=== PATIENT | male | born 1940 | race Caucasian/White ===

== ENCOUNTER 2024-08-05 21:02 | Inpatient (IN) | payer OTHER ==
[~2024-08-05] VITALS: Ht 162.6 cm; Wt 55.8 kg
[~2024-08-05 21:02] MED LIST: CYAN-10 IM; EPOE1VIA6 SUBCUT; ESOM20CA PO; FOLI0.8T23 PO; LOPE2CAP40 PO; PRED20TA PO; TAMS-3 PO; TEMA30CA PO; USTE90DI SQ; VITAMIN D PO
[2024-08-05] MEDS ORDERED: ACETAMINOPHEN 500 MG TABLET ONE (22:11)
[2024-08-05] MEDS: ACETAMINOPHEN 500 MG TABLET PO ONE (22:12)
[2024-08-05 22:21] LABS: BASOPHILS % (AUTO) 0.2 % (0.0-2.0); EOSINOPHILS # (AUTO) 0.1 K/uL (0.0-0.7); EOSINOPHILS % (AUTO) 4.3 % (0.0-7.0); HEMATOCRIT 29.6 % (36.7-47.1); HEMOGLOBIN 9.5 g/dL (12.5-16.3); LYMPHOCYTES # (AUTO) 0.1 K/uL (0.8-4.8); LYMPHOCYTES % (AUTO) 2.4 % (20.5-51.5); MEAN CORPUSCULAR HEMOGLOBIN 31.7 uug (23.8-33.4); MEAN CORPUSCULAR HGB CONC 32 g/dL (32.5-36.3); MEAN CORPUSCULAR VOLUME 99.1 fL (73.0-96.2); MONOCYTES # (AUTO) 0.2 K/uL (0.1-1.30); MONOCYTES % (AUTO) 7.5 % (0.0-11.0); NEUTROPHILS # (AUTO) 2.6 K/uL (1.8-8.9); NEUTROPHILS % (AUTO) 85.6 % (38.5-71.5); PLATELET COUNT (AUTO) 96 K/uL (152-348); RED BLOOD CELL COUNT(AUTO) 2.99 MIL/uL (4.06-5.63); RED CELL DISTRIBUTION WIDTH 16.6 % (12.1-16.2); WHITE BLOOD COUNT (AUTO) 3.1 K/uL (3.6-10.2)
[2024-08-05 22:25] LABS: DIFFERENTIAL COMMENT N
[2024-08-05] MEDS ORDERED: levoFLOXacin 750MG/D5W 150 ML IV ONE (22:43)
[2024-08-05] MEDS: levoFLOXacin 750 MG/D5W 150 ML PIGGYBACK IV ONE (22:52)
[2024-08-05 23:01] LABS: ALANINE AMINOTRANSFERASE < 6 U/L (16-63); ALBUMIN 2.6 g/dL (3.4-5.0); ALKALINE PHOSPHATASE 73 U/L (50-136); ASPARTATE AMINOTRANSFERASE 8 U/L (15-37); BILIRUBIN,DIRECT 0.2 mg/dL (0.0-0.2); BILIRUBIN,TOTAL 0.7 mg/dL (0.2-1.0); CALCIUM 8.4 mg/dL (8.5-10.1); CARBON DIOXIDE 31 mmol/L (21-32); CHLORIDE 94 mmol/L (98-107); CREATININE 6.9 mg/dL (0.6-1.3); GLUCOSE 84 mg/dL (74-106); NT-PRO BNP 500498 pg/mL (0-125); POTASSIUM 5.7 mmol/L (3.5-5.1); SODIUM SERUM 132 mmol/L (136-145); TOTAL PROTEIN, SERUM 6.1 g/dL (6.4-8.2); UREA NITROGEN, BLOOD 59 mg/dL (7-18)
[2024-08-05] MEDS ORDERED: SODIUM POLYSTYRENE SULFONATE 15 G/60 ML LIQUID UDC ONE (23:17)
[2024-08-05] MEDS: SODIUM POLYSTYRENE SULFONATE 15 G/60 ML LIQUID UDC PO ONE (23:23)
[2024-08-05 23:29] LABS: MAGNESIUM 1.3 mg/dL (1.8-2.4); PHOSPHOROUS 4.1 mg/dL (2.5-4.9)
[2024-08-06 00:10] LABS: BAND % (MANUAL) 1 % (0-10); EOSINOPHILS % (MANUAL) 2 % (0-8); LYMPHOCYTES % (MANUAL) 8 % (20-40); MONOCYTES % (MANUAL) 4 % (2-10); NEUTROPHILS % (MANUAL) 85 % (42-75); PLATELET ESTIMATE DECREASED
[2024-08-06] MEDS ORDERED: ONDANSETRON 4 MG/2 ML VIAL IV PRN (00:30)
[2024-08-06] MEDS ORDERED: MAGNESIUM HYDROXIDE 30 ML LIQUID UDC PO PRN (00:30)
[2024-08-06] MEDS ORDERED: levoFLOXacin 750MG/D5W 750 MG in PREMIXED 1 EACH IV SCH (00:30)
[2024-08-06] MEDS ORDERED: HYDROMORPHONE 1 MG/1 ML DISP.SYRIN ONE (05:50)
[2024-08-06] MEDS: HYDROMORPHONE 1 MG/1 ML DISP.SYRIN IV PRN (05:59)
[2024-08-06 06:06] LABS: BASOPHILS % (AUTO) 1.4 % (0.0-2.0); EOSINOPHILS # (AUTO) 0.1 K/uL (0.0-0.7); EOSINOPHILS % (AUTO) 3.8 % (0.0-7.0); HEMATOCRIT 30.1 % (36.7-47.1); HEMOGLOBIN 9.6 g/dL (12.5-16.3); LYMPHOCYTES # (AUTO) 0.1 K/uL (0.8-4.8); LYMPHOCYTES % (AUTO) 4.6 % (20.5-51.5); MEAN CORPUSCULAR HEMOGLOBIN 31.8 uug (23.8-33.4); MEAN CORPUSCULAR HGB CONC 32 g/dL (32.5-36.3); MONOCYTES # (AUTO) 0.3 K/uL (0.1-1.30); MONOCYTES % (AUTO) 11.3 % (0.0-11.0); NEUTROPHILS % (AUTO) 78.9 % (38.5-71.5); PLATELET COUNT (AUTO) 95 K/uL (152-348); RED BLOOD CELL COUNT(AUTO) 3.04 MIL/uL (4.06-5.63); RED CELL DISTRIBUTION WIDTH 17.1 % (12.1-16.2); WHITE BLOOD COUNT (AUTO) 2.5 K/uL (3.6-10.2)
[2024-08-06 06:23] LABS: CARBON DIOXIDE 34 mmol/L (21-32); CHLORIDE 99 mmol/L (98-107); CREATININE 3.8 mg/dL (0.6-1.3); GLUCOSE 86 mg/dL (74-106); MAGNESIUM 1.4 mg/dL (1.8-2.4); PHOSPHOROUS 3.2 mg/dL (2.5-4.9); SODIUM SERUM 137 mmol/L (136-145); UREA NITROGEN, BLOOD 27 mg/dL (7-18)
[2024-08-06] MEDS ORDERED: ACETAMINOPHEN 325 MG TABLET ONE (06:35)
[2024-08-06] MEDS: ACETAMINOPHEN 325 MG TABLET PO PRN (06:37)
[2024-08-06] MEDS ORDERED: TEMAZEPAM 15 MG CAPSULE PO PRN (07:00)
[2024-08-06] MEDS ORDERED: PANTOPRAZOLE SODIUM 40 MG TABLET.DR PO ONE (07:24)
[2024-08-06] MEDS: PANTOPRAZOLE SODIUM 40 MG TABLET.DR PO SCH (07:27)
[2024-08-06] MEDS ORDERED: PANTOPRAZOLE SODIUM 40 MG VIAL IV SCH (09:00)
[2024-08-06] MEDS ORDERED: DEXAMETHASONE SOD PHOSPHATE 4 MG INJ ONE (09:00)
[2024-08-06] MEDS ORDERED: CHOLECALCIFEROL 1,000 UNIT TABLET ONE (09:01)
[2024-08-06] MEDS: FOLIC ACID/VITAMIN B COMP W-C TABLET PO SCH (09:21)
[2024-08-06] MEDS: CHOLECALCIFEROL 1,000 UNIT TABLET PO SCH (09:21)
[2024-08-06] MEDS: DEXAMETHASONE SOD PHOSPHATE 4 MG INJ IV SCH (09:34)
[2024-08-06] MEDS ORDERED: DIPH1TAB PO (14:06)
[2024-08-06] MEDS ORDERED: TEMA15CA PO (14:06)
[2024-08-06] MEDS ORDERED: CETI-90 PO (14:06)
[2024-08-06] MEDS ORDERED: MIRT7.5T10 PO (14:06)
[2024-08-06] MEDS ORDERED: CALC667T2 PO (14:06)
[2024-08-06] MEDS ORDERED: MAGNESIUM OXIDE 400 MG TABLET ONE (14:35)
[2024-08-06] MEDS: MAGNESIUM OXIDE 400 MG TABLET PO ONE (14:36)
[2024-08-06] MEDS ORDERED: VANCOMYCIN IV 200 ML ONE (16:34)
[2024-08-06] MEDS: VANCOMYCIN IV 1,000 MG in IV DEXTROSE 5% 250 ML IV ONE (16:35)
[2024-08-06 18:44] VITALS: BP 120/48; TEMP 98.1; O2SAT 96
[2024-08-06 19:20] LABS: BAND % (MANUAL) 3 % (0-10); EOSINOPHILS % (MANUAL) 1 % (0-8); LYMPHOCYTES % (MANUAL) 7 % (20-40); MONOCYTES % (MANUAL) 10 % (2-10); NEUTROPHILS % (MANUAL) 79 % (42-75); PLATELET ESTIMATE DECREASED
[2024-08-06 19:21] LABS: ANISOCYTOSIS 1+
[2024-08-06 20:00] VITALS: BP 111/74; TEMP 98.1; O2SAT 96
[2024-08-06] MEDS: CALCIUM ACETATE 667 MG CAP/TAB PO SCH (20:24)
[2024-08-06] MEDS: MIRTAZAPINE 15 MG TABLET PO SCH (20:25)
[2024-08-06] MEDS: TEMAZEPAM 15 MG CAPSULE PO PRN (20:36)
[2024-08-06] MEDS ORDERED: HEPARIN SODIUM,PORCINE 5,000 UNITS/ML VIAL SQ SCH (21:00)
[2024-08-06] MEDS ORDERED: TAMSULOSIN HCL 0.4 MG CAP.SR.24H PO SCH (21:00)
[2024-08-06] MEDS ORDERED: TEMAZEPAM 15 MG CAPSULE PO SCH (21:00)
[2024-08-06 23:59] VITALS: BP 135/43; TEMP 97.9; O2SAT 96
[2024-08-07 04:13] VITALS: BP 134/55; TEMP 98.7; O2SAT 95
[2024-08-07 06:51] LABS: BASOPHILS % (AUTO) 1.2 % (0.0-2.0); EOSINOPHILS # (AUTO) 0.2 K/uL (0.0-0.7); HEMATOCRIT 23.7 % (36.7-47.1); HEMOGLOBIN 7.7 g/dL (12.5-16.3); LYMPHOCYTES # (AUTO) 0.2 K/uL (0.8-4.8); LYMPHOCYTES % (AUTO) 10.5 % (20.5-51.5); MEAN CORPUSCULAR HEMOGLOBIN 32.1 uug (23.8-33.4); MEAN CORPUSCULAR HGB CONC 32 g/dL (32.5-36.3); MEAN CORPUSCULAR VOLUME 99.1 fL (73.0-96.2); MONOCYTES # (AUTO) 0.2 K/uL (0.1-1.30); NEUTROPHILS # (AUTO) 1.4 K/uL (1.8-8.9); NEUTROPHILS % (AUTO) 70.3 % (38.5-71.5); PLATELET COUNT (AUTO) 81 K/uL (152-348)
[2024-08-07 06:53] LABS: DIFFERENTIAL COMMENT 1; RED BLOOD CELL COUNT(AUTO) 2.39 MIL/uL (4.06-5.63)
[2024-08-07 07:04] LABS: CALCIUM 7.8 mg/dL (8.5-10.1); CARBON DIOXIDE 34 mmol/L (21-32); CHLORIDE 96 mmol/L (98-107); CREATININE 5.9 mg/dL (0.6-1.3); GLUCOSE 78 mg/dL (74-106); SODIUM SERUM 134 mmol/L (136-145); UREA NITROGEN, BLOOD 43 mg/dL (7-18)
[2024-08-07] MEDS: TAMSULOSIN HCL 0.4 MG CAP.SR.24H PO SCH (08:32)
[2024-08-07] MEDS: REMEDY ESSENTIAL ZINC PASTE 113 GM TP PRN (08:36)
[2024-08-07] MEDS ORDERED: ENOXAPARIN SODIUM 30 MG/0.3 ML DISP.SYRIN SQ SCH (09:00)
[2024-08-07 15:42] VITALS: O2SAT 95
[2024-08-07 16:00] VITALS: BP 115/61; TEMP 97.2; O2SAT 96
[2024-08-07] MEDS: VANCOMYCIN IV 1,000 MG in IV DEXTROSE 5% 250 ML IV ONE (20:00)
[2024-08-07 20:54] VITALS: BP 164/53; TEMP 98.4; O2SAT 98
[2024-08-07] MEDS: levoFLOXacin 500 MG/D5W 500 MG in PREMIXED 1 EACH IV SCH (21:40)
[2024-08-08] VITALS (8 sets, daily range): BP systolic 82–166; BP diastolic 40–80; TEMP 97.5–98.7; O2SAT 93–98
[2024-08-08 08:51] LABS: BASOPHILS % (AUTO) 0.7 % (0.0-2.0); EOSINOPHILS # (AUTO) 0.2 K/uL (0.0-0.7); HEMATOCRIT 25.8 % (36.7-47.1); HEMOGLOBIN 8.4 g/dL (12.5-16.3); LYMPHOCYTES # (AUTO) 0.3 K/uL (0.8-4.8); LYMPHOCYTES % (AUTO) 8.6 % (20.5-51.5); MEAN CORPUSCULAR HEMOGLOBIN 32.3 uug (23.8-33.4); MEAN CORPUSCULAR HGB CONC 33 g/dL (32.5-36.3); MEAN CORPUSCULAR VOLUME 99.3 fL (73.0-96.2); MONOCYTES # (AUTO) 0.3 K/uL (0.1-1.30); MONOCYTES % (AUTO) 9.2 % (0.0-11.0); NEUTROPHILS # (AUTO) 2.2 K/uL (1.8-8.9); NEUTROPHILS % (AUTO) 75.5 % (38.5-71.5); PLATELET COUNT (AUTO) 88 K/uL (152-348); RED CELL DISTRIBUTION WIDTH 15.9 % (12.1-16.2); WHITE BLOOD COUNT (AUTO) 2.9 K/uL (3.6-10.2)
[2024-08-08 09:05] LABS: CALCIUM 8.4 mg/dL (8.5-10.1); CARBON DIOXIDE 30 mmol/L (21-32); CHLORIDE 98 mmol/L (98-107); CREATININE 4.8 mg/dL (0.6-1.3); GLUCOSE 89 mg/dL (74-106); POTASSIUM 4.3 mmol/L (3.5-5.1); SODIUM SERUM 135 mmol/L (136-145); UREA NITROGEN, BLOOD 34 mg/dL (7-18)
[2024-08-08 09:18] LABS: DIFFERENTIAL COMMENT 1
[2024-08-08 11:02] LABS: EOSINOPHILS % (MANUAL) 6 % (0-8); LYMPHOCYTES % (MANUAL) 9 % (20-40); MONOCYTES % (MANUAL) 9 % (2-10); NEUTROPHILS % (MANUAL) 76 % (42-75); PLATELET ESTIMATE DECREASED
[2024-08-08] MEDS: SIMETHICONE 80 MG TAB.CHEW PO PRN (13:55)
[2024-08-09] VITALS: BP 180/60; TEMP 97.9; O2SAT 97
[2024-08-09 03:00] VITALS: BP 169/64; O2SAT 96
[2024-08-09] MEDS: hydrALAZINE HCL 20 MG/1 ML VIAL IV PRN (03:16)
[2024-08-09 05:28] VITALS: BP 133/58; TEMP 97.9; O2SAT 95
[2024-08-09] MEDS: FLUTICASONE PROP NASAL SPRAY 16 GM BOTTLE NS SCH (08:50)
[2024-08-09] MEDS ORDERED: VANCOMYCIN IV 500 MG in IV DEXTROSE 5% 100 ML IV PRN (10:00)
[2024-08-09] MEDS: ACIDOPHILUS/BULGARICUS CHEW TAB PO SCH (11:57)
[2024-08-09 12:00] VITALS: BP 111/72; TEMP 97.6; O2SAT 97; O2SAT 98
[2024-08-09 16:09] LABS: PROTEIN, BODY FLUID 2.6 G/DL
[2024-08-09 16:53] LABS: WBC, BODY FLUID 159 /cu. mm (0-200/cu.mm)
[2024-08-09 17:00] LABS: TOTAL VOLUME,BODY FLUID 1058 mL
[2024-08-09 17:05] VITALS: BP 138/59; TEMP 98.3; O2SAT 100
[2024-08-09 19:09] LABS: MONOCYTES,BODY FLUID 50 %; POLYNUCLEAR, BODY FLUID 5 % (0-25%)
[2024-08-09] MEDS ORDERED: VANCOMYCIN IV 500 MG in IV DEXTROSE 5% 100 ML IV ONE (20:00)
[2024-08-09] MEDS: VANCOMYCIN IV 500 MG in IV DEXTROSE 5% 100 ML IV ONE (20:26)
[2024-08-09 20:47] VITALS: BP 114/68; TEMP 97.1
[2024-08-10] VITALS (8 sets, daily range): BP systolic 113–163; BP diastolic 56–72; TEMP 97.5–98.1; O2SAT 95–99
[2024-08-11 06:00] VITALS: BP 126/92; TEMP 97.7; O2SAT 99
[2024-08-11] MEDS: NEPRO (VANILLA) 237 ML CAN PO SCH (09:07)
[2024-08-11 10:55] VITALS: BP 141/40; TEMP 97.5; O2SAT 98
[2024-08-11 11:44] VITALS: BP 147/56; TEMP 97.8; O2SAT 97
[2024-08-11 16:00] VITALS: BP 146/70; TEMP 97.9; O2SAT 99
[2024-08-11 16:30] VITALS: O2SAT 96
[2024-08-11] MEDS ORDERED: DIPHENOXYLATE HCL/ATROP SULF TABLET PO PRN (18:15)
[2024-08-11] MEDS: DIPHENOXYLATE HCL/ATROP SULF TABLET PO PRN (18:49)
[2024-08-11 20:05] VITALS: BP 139/55; TEMP 98.6; O2SAT 100
[2024-08-12 04:55] VITALS: O2SAT 96
[2024-08-12 08:15] VITALS: BP 126/54; TEMP 98.2; O2SAT 95
[2024-08-12 11:38] LABS: PROTEIN, BODY FLUID 2.9 G/DL
[2024-08-12 12:00] VITALS: BP 138/51; TEMP 97.5; O2SAT 99
[2024-08-12 13:10] LABS: MACROPHAGES, BODY FLUID 55; TOTAL VOLUME,BODY FLUID 1050 mL; WBC, BODY FLUID 162 /cu. mm (0-200/cu.mm)
[2024-08-12 13:11] LABS: MONOCYTES,BODY FLUID 0 %; POLYNUCLEAR, BODY FLUID 9 % (0-25%)
[2024-08-12 16:19] VITALS: BP 140/67; TEMP 98.1; O2SAT 100
[2024-08-12 17:00] VITALS: O2SAT 97
[2024-08-12 18:34] LABS: *OCCULT BLOOD STOOL POSITIVE (NEGATIVE)
[2024-08-12 19:00] VITALS: BP 146/32; TEMP 98.1; O2SAT 99
[2024-08-13 06:00] VITALS: BP 152/57; TEMP 98.9; O2SAT 97
[2024-08-13 06:13] VITALS: O2SAT 97
[2024-08-13 06:45] LABS: EOSINOPHILS # (AUTO) 0.1 K/uL (0.0-0.7); LYMPHOCYTES # (AUTO) 0.5 K/uL (0.8-4.8); MEAN CORPUSCULAR VOLUME 97.1 fL (73.0-96.2); MONOCYTES # (AUTO) 0.4 K/uL (0.1-1.30)
[2024-08-13 06:47] LABS: EOSINOPHILS % (AUTO) 2.3 % (0.0-7.0); HEMATOCRIT 22.8 % (36.7-47.1); LYMPHOCYTES % (AUTO) 10.6 % (20.5-51.5); MEAN CORPUSCULAR HEMOGLOBIN 31.4 uug (23.8-33.4); MEAN CORPUSCULAR HGB CONC 32 g/dL (32.5-36.3); MONOCYTES % (AUTO) 9.3 % (0.0-11.0); NEUTROPHILS # (AUTO) 3.3 K/uL (1.8-8.9); NEUTROPHILS % (AUTO) 76.8 % (38.5-71.5); PLATELET COUNT (AUTO) 106 K/uL (152-348); RED CELL DISTRIBUTION WIDTH 15.2 % (12.1-16.2); WHITE BLOOD COUNT (AUTO) 4.3 K/uL (3.6-10.2)
[2024-08-13 07:07] LABS: IRON, SERUM 34 ug/dL (50-175)
[2024-08-13 07:26] LABS: ALANINE AMINOTRANSFERASE 10 U/L (16-63); ALBUMIN 2.1 g/dL (3.4-5.0); ALKALINE PHOSPHATASE 55 U/L (50-136); ASPARTATE AMINOTRANSFERASE 10 U/L (15-37); BILIRUBIN,TOTAL 0.5 mg/dL (0.2-1.0); CARBON DIOXIDE 30 mmol/L (21-32); CHLORIDE 97 mmol/L (98-107); FERRITIN 828 ng/mL (26-388); GLUCOSE 84 mg/dL (74-106); MAGNESIUM 1.4 mg/dL (1.8-2.4); PHOSPHOROUS 2.6 mg/dL (2.5-4.9); POTASSIUM 4.2 mmol/L (3.5-5.1); SODIUM SERUM 132 mmol/L (136-145); TOTAL PROTEIN, SERUM 5.4 g/dL (6.4-8.2); UREA NITROGEN, BLOOD 40 mg/dL (7-18)
[2024-08-13 07:29] LABS: DIFFERENTIAL COMMENT 1; HEMOGLOBIN 7.4 g/dL (12.5-16.3); RED BLOOD CELL COUNT(AUTO) 2.35 MIL/uL (4.06-5.63)
[2024-08-13 09:30] VITALS: O2SAT 97
[2024-08-13] MEDS: MAGNESIUM OXIDE 400 MG TABLET PO ONE (14:05)
[2024-08-13 15:25] VITALS: BP 113/57; TEMP 97.5; O2SAT 100
[2024-08-13 19:00] VITALS: BP 135/39; TEMP 97.4; O2SAT 100
[2024-08-13 21:10] VITALS: O2SAT 99
[2024-08-14 07:12] VITALS: BP 145/47; TEMP 98; O2SAT 96
[2024-08-14 08:00] VITALS: BP 156/46; TEMP 98; O2SAT 100
[2024-08-14 09:09] LABS: BASOPHILS # (AUTO) 0.1 K/UL (0.0-0.2); BASOPHILS % (AUTO) 1.5 % (0.0-2.0); EOSINOPHILS # (AUTO) 0.2 K/uL (0.0-0.7); EOSINOPHILS % (AUTO) 5.4 % (0.0-7.0); HEMATOCRIT 22.2 % (36.7-47.1); LYMPHOCYTES # (AUTO) 0.5 K/uL (0.8-4.8); LYMPHOCYTES % (AUTO) 13.2 % (20.5-51.5); MEAN CORPUSCULAR HEMOGLOBIN 31.5 uug (23.8-33.4); MEAN CORPUSCULAR HGB CONC 32 g/dL (32.5-36.3); MONOCYTES # (AUTO) 0.3 K/uL (0.1-1.30); MONOCYTES % (AUTO) 7.7 % (0.0-11.0); NEUTROPHILS # (AUTO) 2.6 K/uL (1.8-8.9); NEUTROPHILS % (AUTO) 72.2 % (38.5-71.5); PLATELET COUNT (AUTO) 106 K/uL (152-348); RED CELL DISTRIBUTION WIDTH 15.4 % (12.1-16.2); WHITE BLOOD COUNT (AUTO) 3.7 K/uL (3.6-10.2)
[2024-08-14 09:21] LABS: DIFFERENTIAL COMMENT 1; HEMOGLOBIN 7.1 g/dL (12.5-16.3); RED BLOOD CELL COUNT(AUTO) 2.26 MIL/uL (4.06-5.63)
[2024-08-14 16:00] VITALS: BP 144/52; TEMP 98.1; O2SAT 100
[2024-08-14 20:26] VITALS: BP 145/60; TEMP 98.2; O2SAT 100
[2024-08-14 21:55] VITALS: O2SAT 98
[2024-08-15] VITALS (12 sets, daily range): BP systolic 125–158; BP diastolic 40–64; TEMP 97.6–98.9; O2SAT 94–97
[2024-08-15 07:58] LABS: BASOPHILS % (AUTO) 1.1 % (0.0-2.0); EOSINOPHILS # (AUTO) 0.2 K/uL (0.0-0.7); EOSINOPHILS % (AUTO) 5.1 % (0.0-7.0); LYMPHOCYTES # (AUTO) 0.5 K/uL (0.8-4.8); LYMPHOCYTES % (AUTO) 13.3 % (20.5-51.5); MEAN CORPUSCULAR HEMOGLOBIN 31.6 uug (23.8-33.4); MEAN CORPUSCULAR HGB CONC 33 g/dL (32.5-36.3); MEAN CORPUSCULAR VOLUME 96.6 fL (73.0-96.2); MONOCYTES # (AUTO) 0.4 K/uL (0.1-1.30); MONOCYTES % (AUTO) 9.7 % (0.0-11.0); NEUTROPHILS # (AUTO) 2.8 K/uL (1.8-8.9); NEUTROPHILS % (AUTO) 70.8 % (38.5-71.5); PLATELET COUNT (AUTO) 106 K/uL (152-348); RED CELL DISTRIBUTION WIDTH 14.7 % (12.1-16.2)
[2024-08-15 08:09] LABS: CARBON DIOXIDE 28 mmol/L (21-32); CHLORIDE 97 mmol/L (98-107); CREATININE 6.5 mg/dL (0.6-1.3); GLUCOSE 108 mg/dL (74-106); MAGNESIUM 1.3 mg/dL (1.8-2.4); PHOSPHOROUS 2.7 mg/dL (2.5-4.9); POTASSIUM 4.4 mmol/L (3.5-5.1); SODIUM SERUM 131 mmol/L (136-145); UREA NITROGEN, BLOOD 39 mg/dL (7-18)
[2024-08-15 08:18] LABS: CALCIUM 7.9 mg/dL (8.5-10.1)
[2024-08-15 08:27] LABS: DIFFERENTIAL COMMENT 1; HEMATOCRIT 20.5 % (36.7-47.1); HEMOGLOBIN 6.7 g/dL (12.5-16.3); RED BLOOD CELL COUNT(AUTO) 2.12 MIL/uL (4.06-5.63)
[2024-08-15] MEDS: MAGNESIUM OXIDE 400 MG TABLET PO ONE (10:14)
[2024-08-15 13:06] LABS: ANISOCYTOSIS 1+; BAND % (MANUAL) 3 % (0-10); EOSINOPHILS % (MANUAL) 5 % (0-8); LYMPHOCYTES % (MANUAL) 14 % (20-40); MONOCYTES % (MANUAL) 11 % (2-10); NEUTROPHILS % (MANUAL) 67 % (42-75); PLATELET ESTIMATE DECREASED
[2024-08-15] MEDS: PANTOPRAZOLE SODIUM 40 MG TABLET.DR PO SCH (17:11)
[2024-08-16 06:00] VITALS: BP 176/50; TEMP 98.1; O2SAT 95
[2024-08-16] MEDS ORDERED: EPOETIN ALFA 10,000 UNITS/ML VIAL SQ ONE (07:00)
[2024-08-16 07:34] LABS: EOSINOPHILS # (AUTO) 0.2 K/uL (0.0-0.7); HEMATOCRIT 22.7 % (36.7-47.1); HEMOGLOBIN 7.6 g/dL (12.5-16.3); LYMPHOCYTES # (AUTO) 0.6 K/uL (0.8-4.8); LYMPHOCYTES % (AUTO) 13.3 % (20.5-51.5); MEAN CORPUSCULAR HEMOGLOBIN 31.8 uug (23.8-33.4); MEAN CORPUSCULAR HGB CONC 34 g/dL (32.5-36.3); MEAN CORPUSCULAR VOLUME 94.8 fL (73.0-96.2); MONOCYTES # (AUTO) 0.4 K/uL (0.1-1.30); MONOCYTES % (AUTO) 9.5 % (0.0-11.0); NEUTROPHILS # (AUTO) 3.3 K/uL (1.8-8.9); NEUTROPHILS % (AUTO) 72.2 % (38.5-71.5); PLATELET COUNT (AUTO) 116 K/uL (152-348); RED CELL DISTRIBUTION WIDTH 14.7 % (12.1-16.2); WHITE BLOOD COUNT (AUTO) 4.5 K/uL (3.6-10.2)
[2024-08-16 07:49] LABS: CARBON DIOXIDE 26 mmol/L (21-32); CHLORIDE 98 mmol/L (98-107); CREATININE 7.5 mg/dL (0.6-1.3); GLUCOSE 98 mg/dL (74-106); POTASSIUM 5.1 mmol/L (3.5-5.1); SODIUM SERUM 132 mmol/L (136-145); UREA NITROGEN, BLOOD 48 mg/dL (7-18)
[2024-08-16 07:51] LABS: DIFFERENTIAL COMMENT 1
[2024-08-16] MEDS: EPOETIN ALFA-EPBX 10,000 UNIT/ML VIAL SQ ONE (09:43)
[2024-08-16 11:48] VITALS: BP 154/54; TEMP 98.5; O2SAT 93
[2024-08-16] MEDS: SODIUM ZIRCONIUM CYCLOSILICATE 10 GM POWD.PACK PO ONE (13:12)
[2024-08-16 16:47] VITALS: BP 149/56; TEMP 97.8; O2SAT 96
[2024-08-16 19:00] VITALS: BP 150/64; TEMP 98.2; O2SAT 95
[2024-08-17 06:00] VITALS: BP 126/60; TEMP 97.7; O2SAT 97
[2024-08-17 07:45] LABS: BASOPHILS # (AUTO) 0.1 K/UL (0.0-0.2); BASOPHILS % (AUTO) 1.3 % (0.0-2.0); EOSINOPHILS # (AUTO) 0.3 K/uL (0.0-0.7); EOSINOPHILS % (AUTO) 4.9 % (0.0-7.0); HEMATOCRIT 25.4 % (36.7-47.1); HEMOGLOBIN 8.4 g/dL (12.5-16.3); LYMPHOCYTES # (AUTO) 0.5 K/uL (0.8-4.8); LYMPHOCYTES % (AUTO) 9.1 % (20.5-51.5); MEAN CORPUSCULAR HEMOGLOBIN 31.6 uug (23.8-33.4); MEAN CORPUSCULAR HGB CONC 33 g/dL (32.5-36.3); MEAN CORPUSCULAR VOLUME 95.2 fL (73.0-96.2); MONOCYTES # (AUTO) 0.5 K/uL (0.1-1.30); MONOCYTES % (AUTO) 9.2 % (0.0-11.0); NEUTROPHILS % (AUTO) 75.5 % (38.5-71.5); PLATELET COUNT (AUTO) 128 K/uL (152-348); RED BLOOD CELL COUNT(AUTO) 2.66 MIL/uL (4.06-5.63); RED CELL DISTRIBUTION WIDTH 14.8 % (12.1-16.2); WHITE BLOOD COUNT (AUTO) 5.3 K/uL (3.6-10.2)
[2024-08-17 08:11] LABS: DIFFERENTIAL COMMENT 1
[2024-08-17 08:17] LABS: CALCIUM 7.9 mg/dL (8.5-10.1); CARBON DIOXIDE 26 mmol/L (21-32); CHLORIDE 96 mmol/L (98-107); GLUCOSE 78 mg/dL (74-106); POTASSIUM 4.9 mmol/L (3.5-5.1); SODIUM SERUM 126 mmol/L (136-145); UREA NITROGEN, BLOOD 57 mg/dL (7-18)
[2024-08-17 08:22] LABS: CREATININE 8.4 mg/dL (0.6-1.3)
[2024-08-17 08:43] LABS: MAGNESIUM 1.1 mg/dL (1.8-2.4)
[2024-08-17 11:39] VITALS: BP 178/50; TEMP 98.4; O2SAT 94
[2024-08-17] MEDS: MAGNESIUM SULFATE/D5W 100 ML IV SCH (14:05)
[2024-08-17 15:49] VITALS: BP 160/56; TEMP 97.6; O2SAT 94
[2024-08-17 20:00] VITALS: BP 161/46; TEMP 97.9; O2SAT 95
[2024-08-18 06:00] VITALS: BP 158/57; TEMP 97.7; O2SAT 94
[2024-08-18 07:53] LABS: BASOPHILS # (AUTO) 0.1 K/UL (0.0-0.2); BASOPHILS % (AUTO) 1.1 % (0.0-2.0); EOSINOPHILS # (AUTO) 0.2 K/uL (0.0-0.7); EOSINOPHILS % (AUTO) 3.5 % (0.0-7.0); HEMATOCRIT 24.4 % (36.7-47.1); HEMOGLOBIN 8.3 g/dL (12.5-16.3); LYMPHOCYTES # (AUTO) 0.4 K/uL (0.8-4.8); LYMPHOCYTES % (AUTO) 7.4 % (20.5-51.5); MEAN CORPUSCULAR HGB CONC 34 g/dL (32.5-36.3); MEAN CORPUSCULAR VOLUME 94.1 fL (73.0-96.2); MONOCYTES # (AUTO) 0.5 K/uL (0.1-1.30); PLATELET COUNT (AUTO) 130 K/uL (152-348); RED BLOOD CELL COUNT(AUTO) 2.59 MIL/uL (4.06-5.63); RED CELL DISTRIBUTION WIDTH 14.6 % (12.1-16.2); WHITE BLOOD COUNT (AUTO) 5.1 K/uL (3.6-10.2)
[2024-08-18 07:59] LABS: CALCIUM 7.9 mg/dL (8.5-10.1); CARBON DIOXIDE 33 mmol/L (21-32); CHLORIDE 98 mmol/L (98-107); CREATININE 5.8 mg/dL (0.6-1.3); GLUCOSE 83 mg/dL (74-106); POTASSIUM 4.3 mmol/L (3.5-5.1); SODIUM SERUM 136 mmol/L (136-145); UREA NITROGEN, BLOOD 33 mg/dL (7-18)
[2024-08-18 08:12] LABS: DIFFERENTIAL COMMENT 1
[2024-08-18] MEDS: ARGININE/GLUTAMINE/CALCIUM BMB 1 EACH POWD.PACK PO SCH (09:44)
[2024-08-18] MEDS ORDERED: ACID1TAB4 PO (11:07)
[2024-08-18 11:27] VITALS: BP 149/66; TEMP 97.8; O2SAT 96
== END 2024-08-18 14:25 | disposition home or self-care (01) | DRG 871 ==
LOC: ER 21:03 → TRANSITION 08-06 02:46 → TELE3 08-06 17:48 → TELE-TD3 08-06 18:25 → TELE3 08-07 11:54 → MEDSURG3 08-10 08:05
PROVIDERS: ATTEND Nurse Practitioner Acute Care
PROC: 5A1D70Z Performance of Urinary Filtration, Intermittent, Less than 6 Hours Per Day (ICD-10-PCS; principal; 2024-08-07)
PROC: 05HB33Z Insertion of Infusion Device into Right Basilic Vein, Percutaneous Approach (ICD-10-PCS; 2024-08-07)
PROC: 0W993ZX Drainage of Right Pleural Cavity, Percutaneous Approach, Diagnostic (ICD-10-PCS; 2024-08-09)
PROC: 0W9B3ZZ Drainage of Left Pleural Cavity, Percutaneous Approach (ICD-10-PCS; 2024-08-12)
PROC: 30233N1 Transfusion of Nonautologous Red Blood Cells into Peripheral Vein, Percutaneous Approach (ICD-10-PCS; 2024-08-15)
DX: A41.89 Other specified sepsis (principal); G92.8 Other toxic encephalopathy; U07.1 COVID-19; J12.82 Pneumonia due to coronavirus disease 2019; J96.01 Acute respiratory failure with hypoxia; N18.6 End stage renal disease; J15.9 Unspecified bacterial pneumonia; I13.11 Hypertensive heart and chronic kidney disease without heart failure, with stage 5 chronic kidney disease, or end stage renal disease; J98.11 Atelectasis; K50.90 Crohn's disease, unspecified, without complications; R64 Cachexia; E44.0 Moderate protein-calorie malnutrition; D61.818 Other pancytopenia; J91.8 Pleural effusion in other conditions classified elsewhere; R58 Hemorrhage, not elsewhere classified; R65.20 Severe sepsis without septic shock; Z99.2 Dependence on renal dialysis; E87.70 Fluid overload, unspecified; N40.0 Benign prostatic hyperplasia without lower urinary tract symptoms; E87.5 Hyperkalemia; E88.09 Other disorders of plasma-protein metabolism, not elsewhere classified; D63.1 Anemia in chronic kidney disease; R19.5 Other fecal abnormalities
CPT/HCPCS: 32555; 36415; 70030-TC; 71045; 71250; 83550; 83605; 83615; 83735; 83986; 84100; 84155; 84484; 85025; 85610; 85730; 86140; 86850; 86900; 86901; 86920; 87040; 90937; 93005; 93307; A4606; A4663; A6209; A6213; A9150; G0378; J0360; J0885; J1100; J1170; J1956; J3370; J3475; J3535; J7040; J7050; P9016

== ENCOUNTER 2024-11-11 00:07 | Inpatient (IN) | payer MEDICARE, OTHER ==
[2024-11-11] VITALS (16 sets, daily range): BP systolic 105–130; BP diastolic 38–58; TEMP 99.8; O2SAT 99–100
[~2024-11-11] VITALS: Ht 170.2 cm; Wt 58.5 kg
[~2024-11-11 00:07] MED LIST changes: +ACID1TAB4 PO; +CALC667T2 PO; +CETI-90 PO; +DIPH1TAB PO; -EPOE1VIA6 SUBCUT; +MIRT7.5T10 PO; -PRED20TA PO; +TEMA15CA PO; -TEMA30CA PO
[2024-11-11 00:32] LABS: LYMPHOCYTES # (AUTO) 0.2 K/uL (0.8-4.8); LYMPHOCYTES % (AUTO) 2.7 % (20.5-51.5); MONOCYTES # (AUTO) 0.9 K/uL (0.1-1.30); NEUTROPHILS # (AUTO) 7.7 K/uL (1.8-8.9); WHITE BLOOD COUNT (AUTO) 8.9 K/uL (3.6-10.2)
[2024-11-11 00:34] LABS: BASOPHILS # (AUTO) 0.1 K/UL (0.0-0.2); BASOPHILS % (AUTO) 0.7 % (0.0-2.0); EOSINOPHILS % (AUTO) 0.3 % (0.0-7.0); MEAN CORPUSCULAR HGB CONC 31 g/dL (32.5-36.3); MONOCYTES % (AUTO) 10.2 % (0.0-11.0); NEUTROPHILS % (AUTO) 86.1 % (38.5-71.5)
[2024-11-11] MEDS: ETOMIDATE 20 MG/10 ML VIAL IV ONE (00:50)
[2024-11-11] MEDS: SUCCINYLCHOLINE CHLORIDE 200 MG/10 ML VIAL IV ONE (00:51)
[2024-11-11 00:54] LABS: ALANINE AMINOTRANSFERASE 8 U/L (16-63); ALBUMIN 2.1 g/dL (3.4-5.0); ALKALINE PHOSPHATASE 56 U/L (50-136); ASPARTATE AMINOTRANSFERASE < 5 U/L (15-37); BILIRUBIN,TOTAL 0.6 mg/dL (0.2-1.0); CALCIUM 8.8 mg/dL (8.5-10.1); CARBON DIOXIDE 33 mmol/L (21-32); CHLORIDE 99 mmol/L (98-107); CREATININE 6.6 mg/dL (0.6-1.3); GLUCOSE 107 mg/dL (74-106); NT-PRO BNP 81337 pg/mL (0-125); POTASSIUM 4.9 mmol/L (3.5-5.1); SODIUM SERUM 140 mmol/L (136-145); TOTAL PROTEIN, SERUM 6.5 g/dL (6.4-8.2); UREA NITROGEN, BLOOD 69 mg/dL (7-18)
[2024-11-11] MEDS ORDERED: NOREPINEPHRINE 8MG/NS 250ML 250 ML IV ONE (01:08)
[2024-11-11] MEDS: NOREPINEPHRINE 8MG/NS 250ML 250 ML IV PRN (01:11)
[2024-11-11 01:28] LABS: DIFFERENTIAL COMMENT 1; HEMATOCRIT 21.1 % (36.7-47.1); HEMOGLOBIN 6.5 g/dL (12.5-16.3)
[2024-11-11 01:29] LABS: MEAN CORPUSCULAR VOLUME 101.2 fL (73.0-96.2); PLATELET COUNT (AUTO) 286 K/uL (152-348); RED BLOOD CELL COUNT(AUTO) 2.08 MIL/uL (4.06-5.63); RED CELL DISTRIBUTION WIDTH 15.7 % (12.1-16.2)
[2024-11-11] MEDS: IV NS 1000 ML 1,000 ML IV ONE (01:30)
[2024-11-11 02:14] LABS: ABG BASE EXCESS -2.2 mmol/L (-2.0-3.0); ABG HCO3 22.4 mmol/L (21.0-28.0); ABG PCO2 36.8 mmHg (35.0-48.0); ABG PH 7.402 (7.350-7.450); ABG PO2 399.6 mmHg (83.0-108.0); ABG SITE LEFT FEMORAL; ABG TOTAL HEMOGLOBIN 6.2 G/dL (13.5-17.5); AaDO2 99.8 mmHg; COHb 0.2 % (0.5-1.5); MetHb 0.2 % (0.0-1.5); O2Hb 95.3 % (94.0-98.0); VT, ABG 450 mL
[2024-11-11] MEDS ORDERED: REMEDY ESSENTIAL ZINC PASTE 113 GM TP PRN (02:45)
[2024-11-11] MEDS ORDERED: ONDANSETRON 4 MG/2 ML VIAL IV PRN (02:45)
[2024-11-11 04:38] LABS: BASOPHILS % (MANUAL) 1 % (0-2); EOSINOPHILS % (MANUAL) 1 % (0-8); LYMPHOCYTES % (MANUAL) 5 % (20-40); MONOCYTES % (MANUAL) 7 % (2-10); NEUTROPHILS % (MANUAL) 86 % (42-75)
[2024-11-11] MEDS ORDERED: ACETAMINOPHEN 650 MG SUPP.RECT RC ONE (07:12)
[2024-11-11] MEDS ORDERED: diphenhydrAMINE 50 MG/1 ML VIAL ONE (07:13)
[2024-11-11] MEDS: ACETAMINOPHEN 650 MG SUPP.RECT RC ONE (07:24)
[2024-11-11] MEDS: diphenhydrAMINE 50 MG/1 ML VIAL IV ONE (07:24)
[2024-11-11] MEDS: diphenhydrAMINE 50 MG/1 ML VIAL IM ONE (07:25)
[2024-11-11] MEDS: PANTOPRAZOLE SODIUM 40 MG VIAL IV SCH (09:00)
[2024-11-11 09:50] LABS: BASOPHILS # (AUTO) 0.1 K/UL (0.0-0.2); BASOPHILS % (AUTO) 1.2 % (0.0-2.0); EOSINOPHILS # (AUTO) 0.1 K/uL (0.0-0.7); HEMATOCRIT 21.8 % (36.7-47.1); LYMPHOCYTES # (AUTO) 0.3 K/uL (0.8-4.8); LYMPHOCYTES % (AUTO) 4.1 % (20.5-51.5); MEAN CORPUSCULAR HEMOGLOBIN 31.2 uug (23.8-33.4); MEAN CORPUSCULAR HGB CONC 33 g/dL (32.5-36.3); MEAN CORPUSCULAR VOLUME 96.1 fL (73.0-96.2); MONOCYTES # (AUTO) 0.5 K/uL (0.1-1.30); NEUTROPHILS # (AUTO) 6.8 K/uL (1.8-8.9); NEUTROPHILS % (AUTO) 87.7 % (38.5-71.5); PLATELET COUNT (AUTO) 200 K/uL (152-348); RED CELL DISTRIBUTION WIDTH 15.5 % (12.1-16.2); WHITE BLOOD COUNT (AUTO) 7.7 K/uL (3.6-10.2)
[2024-11-11 09:57] LABS: DIFFERENTIAL COMMENT 1; HEMOGLOBIN 7.1 g/dL (12.5-16.3); RED BLOOD CELL COUNT(AUTO) 2.27 MIL/uL (4.06-5.63)
[2024-11-11 10:10] LABS: CALCIUM 8.4 mg/dL (8.5-10.1); CARBON DIOXIDE 27 mmol/L (21-32); CHLORIDE 99 mmol/L (98-107); CREATININE 6.8 mg/dL (0.6-1.3); GLUCOSE 87 mg/dL (74-106); MAGNESIUM 1.3 mg/dL (1.8-2.4); PHOSPHOROUS 7.1 mg/dL (2.5-4.9); POTASSIUM 4.6 mmol/L (3.5-5.1); SODIUM SERUM 137 mmol/L (136-145); UREA NITROGEN, BLOOD 76 mg/dL (7-18)
[2024-11-11] MEDS ORDERED: PANTOPRAZOLE SODIUM 40 MG VIAL ONE (10:10)
[2024-11-11] MEDS ORDERED: CEFEPIME HCL 1 G in IV DEXTROSE 5% 50 ML IV SCH (14:00)
[2024-11-11] MEDS: CEFEPIME HCL 1 G in IV DEXTROSE 5% 50 ML IV SCH (15:53)
[2024-11-11] MEDS ORDERED: EPOETIN ALFA 10,000 UNITS/ML VIAL SQ ONE (18:45)
[2024-11-11] MEDS: EPOETIN ALFA-EPBX 10,000 UNIT/ML VIAL SQ ONE (19:31)
[2024-11-11] MEDS ORDERED: PROPOFOL 100 ML ONE (20:34)
[2024-11-11] MEDS: PROPOFOL 100 ML IV PRN (20:54)
[2024-11-12] VITALS (31 sets, daily range): BP systolic 80–167; BP diastolic 28–96; TEMP 97.5–98.7; O2SAT 99–100
[2024-11-12 05:43] LABS: BASOPHILS # (AUTO) 0.1 K/UL (0.0-0.2); EOSINOPHILS # (AUTO) 0.1 K/uL (0.0-0.7); EOSINOPHILS % (AUTO) 1.2 % (0.0-7.0); LYMPHOCYTES # (AUTO) 0.3 K/uL (0.8-4.8); NEUTROPHILS # (AUTO) 5.9 K/uL (1.8-8.9); RED CELL DISTRIBUTION WIDTH 15.1 % (12.1-16.2); WHITE BLOOD COUNT (AUTO) 6.8 K/uL (3.6-10.2)
[2024-11-12 05:44] LABS: BASOPHILS % (AUTO) 1.2 % (0.0-2.0); LYMPHOCYTES % (AUTO) 4.7 % (20.5-51.5); MEAN CORPUSCULAR HEMOGLOBIN 32.7 uug (23.8-33.4); MEAN CORPUSCULAR HGB CONC 35 g/dL (32.5-36.3); MEAN CORPUSCULAR VOLUME 93.9 fL (73.0-96.2); MONOCYTES # (AUTO) 0.4 K/uL (0.1-1.30); MONOCYTES % (AUTO) 6.5 % (0.0-11.0); NEUTROPHILS % (AUTO) 86.4 % (38.5-71.5); PLATELET COUNT (AUTO) 164 K/uL (152-348)
[2024-11-12 05:57] LABS: CALCIUM 7.7 mg/dL (8.5-10.1); CARBON DIOXIDE 27 mmol/L (21-32); CHLORIDE 99 mmol/L (98-107); CREATININE 5.6 mg/dL (0.6-1.3); GLUCOSE 78 mg/dL (74-106); MAGNESIUM 1.3 mg/dL (1.8-2.4); PHOSPHOROUS 4.4 mg/dL (2.5-4.9); POTASSIUM 3.9 mmol/L (3.5-5.1); SODIUM SERUM 138 mmol/L (136-145); UREA NITROGEN, BLOOD 55 mg/dL (7-18)
[2024-11-12 06:30] LABS: DIFFERENTIAL COMMENT 1; HEMATOCRIT 20.3 % (36.7-47.1); HEMOGLOBIN 7.1 g/dL (12.5-16.3); RED BLOOD CELL COUNT(AUTO) 2.16 MIL/uL (4.06-5.63)
[2024-11-12 07:19] LABS: ABG BASE EXCESS 0.9 mmol/L (-2.0-3.0); ABG HCO3 24.6 mmol/L (21.0-28.0); ABG PCO2 34.7 mmHg (35.0-48.0); ABG PH 7.468 (7.350-7.450); ABG SITE RIGHT RADIAL; ABG TOTAL HEMOGLOBIN 7.6 G/dL (13.5-17.5); AaDO2 98.5 mmHg; COHb 0.2 % (0.5-1.5); MetHb 0.3 % (0.0-1.5); O2Hb 95.4 % (94.0-98.0)
[2024-11-12] MEDS ORDERED: IPRATROPIUM BROMIDE 0.5 MG/2.5 ML NEBU NEB PRN (08:15)
[2024-11-12] MEDS ORDERED: ALBUTEROL SULFATE 2.5 MG/3 ML NEBU NEB PRN (08:15)
[2024-11-12] MEDS ORDERED: DC PROPOFOL ONCE EXTUBATED XX PRN (08:30)
[2024-11-12] MEDS ORDERED: MAGNESIUM SULFATE/D5W 100 ML ONE ×2 (09:34→11:14)
[2024-11-12] MEDS ORDERED: PANTOPRAZOLE SODIUM 40 MG VIAL ONE (09:35)
[2024-11-12] MEDS: MAGNESIUM SULFATE/D5W 100 ML IV SCH (09:48)
[2024-11-12] MEDS ORDERED: CEFEPIME HCL 1 G VIAL ONE (16:06)
[2024-11-12 20:13] LABS: PROTEIN, BODY FLUID 3.3 G/DL
[2024-11-12 20:51] LABS: TOTAL VOLUME,BODY FLUID 925 mL; WBC, BODY FLUID 143 /cu. mm (0-200/cu.mm)
[2024-11-12 21:29] LABS: MONOCYTES,BODY FLUID 17 %; POLYNUCLEAR, BODY FLUID 67 % (0-25%)
[2024-11-13] VITALS (13 sets, daily range): BP systolic 106–173; BP diastolic 35–88; TEMP 97.5–98.4; O2SAT 94–100
[2024-11-13 08:02] LABS: BASOPHILS # (AUTO) 0.1 K/UL (0.0-0.2); BASOPHILS % (AUTO) 1.2 % (0.0-2.0); EOSINOPHILS # (AUTO) 0.2 K/uL (0.0-0.7); EOSINOPHILS % (AUTO) 2.9 % (0.0-7.0); HEMATOCRIT 23.1 % (36.7-47.1); HEMOGLOBIN 7.8 g/dL (12.5-16.3); LYMPHOCYTES # (AUTO) 0.3 K/uL (0.8-4.8); LYMPHOCYTES % (AUTO) 4.1 % (20.5-51.5); MEAN CORPUSCULAR HGB CONC 34 g/dL (32.5-36.3); MEAN CORPUSCULAR VOLUME 94.5 fL (73.0-96.2); MONOCYTES # (AUTO) 0.5 K/uL (0.1-1.30); MONOCYTES % (AUTO) 7.8 % (0.0-11.0); NEUTROPHILS # (AUTO) 5.1 K/uL (1.8-8.9); PLATELET COUNT (AUTO) 155 K/uL (152-348); RED CELL DISTRIBUTION WIDTH 15.4 % (12.1-16.2); WHITE BLOOD COUNT (AUTO) 6.1 K/uL (3.6-10.2)
[2024-11-13 08:03] LABS: DIFFERENTIAL COMMENT 1; RED BLOOD CELL COUNT(AUTO) 2.44 MIL/uL (4.06-5.63)
[2024-11-13 08:15] LABS: CALCIUM 8.4 mg/dL (8.5-10.1); CARBON DIOXIDE 24 mmol/L (21-32); CHLORIDE 100 mmol/L (98-107); CREATININE 6.7 mg/dL (0.6-1.3); GLUCOSE 66 mg/dL (74-106); MAGNESIUM 1.9 mg/dL (1.8-2.4); PHOSPHOROUS 7.7 mg/dL (2.5-4.9); POTASSIUM 4.2 mmol/L (3.5-5.1); SODIUM SERUM 139 mmol/L (136-145); UREA NITROGEN, BLOOD 71 mg/dL (7-18)
[2024-11-13] MEDS ORDERED: ESOM40CA PO (12:56)
[2024-11-13] MEDS: MORPHINE SULFATE 2 MG/1 ML DISP.SYRIN IV PRN (23:24)
[2024-11-14] VITALS (9 sets, daily range): BP systolic 90–148; BP diastolic 32–68; TEMP 94.6–98.5; O2SAT 82–100
[2024-11-14 07:23] LABS: BASOPHILS # (AUTO) 0.1 K/UL (0.0-0.2); BASOPHILS % (AUTO) 1.4 % (0.0-2.0); EOSINOPHILS # (AUTO) 0.2 K/uL (0.0-0.7); LYMPHOCYTES # (AUTO) 0.2 K/uL (0.8-4.8); LYMPHOCYTES % (AUTO) 3.4 % (20.5-51.5); MEAN CORPUSCULAR HEMOGLOBIN 31.9 uug (23.8-33.4); MEAN CORPUSCULAR HGB CONC 34 g/dL (32.5-36.3); MEAN CORPUSCULAR VOLUME 94.4 fL (73.0-96.2); MONOCYTES # (AUTO) 0.5 K/uL (0.1-1.30); NEUTROPHILS # (AUTO) 4.3 K/uL (1.8-8.9); NEUTROPHILS % (AUTO) 82.2 % (38.5-71.5); PLATELET COUNT (AUTO) 147 K/uL (152-348); RED CELL DISTRIBUTION WIDTH 14.9 % (12.1-16.2); WHITE BLOOD COUNT (AUTO) 5.3 K/uL (3.6-10.2)
[2024-11-14 07:41] LABS: DIFFERENTIAL COMMENT 1; HEMATOCRIT 20.7 % (36.7-47.1); RED BLOOD CELL COUNT(AUTO) 2.19 MIL/uL (4.06-5.63)
[2024-11-14 07:52] LABS: CALCIUM 8.6 mg/dL (8.5-10.1); CARBON DIOXIDE 29 mmol/L (21-32); CHLORIDE 102 mmol/L (98-107); CREATININE 4.2 mg/dL (0.6-1.3); GLUCOSE 58 mg/dL (74-106); SODIUM SERUM 140 mmol/L (136-145); UREA NITROGEN, BLOOD 38 mg/dL (7-18)
[2024-11-14] MEDS: PANTOPRAZOLE SODIUM 40 MG VIAL IV SCH (12:36)
[2024-11-14] MEDS: IV D5/ 0.9% NACL 1,000 ML IV PRN (14:41)
[2024-11-15] VITALS (7 sets, daily range): BP systolic 102–143; BP diastolic 31–48; TEMP 94.6–98.7; O2SAT 95–100
[2024-11-15 06:45] LABS: BASOPHILS # (AUTO) 0.1 K/UL (0.0-0.2); BASOPHILS % (AUTO) 2.2 % (0.0-2.0); EOSINOPHILS # (AUTO) 0.2 K/uL (0.0-0.7); EOSINOPHILS % (AUTO) 4.5 % (0.0-7.0); HEMATOCRIT 23.2 % (36.7-47.1); HEMOGLOBIN 7.7 g/dL (12.5-16.3); LYMPHOCYTES # (AUTO) 0.2 K/uL (0.8-4.8); LYMPHOCYTES % (AUTO) 4.5 % (20.5-51.5); MEAN CORPUSCULAR HGB CONC 33 g/dL (32.5-36.3); MEAN CORPUSCULAR VOLUME 96.6 fL (73.0-96.2); MONOCYTES # (AUTO) 0.5 K/uL (0.1-1.30); MONOCYTES % (AUTO) 11.5 % (0.0-11.0); NEUTROPHILS # (AUTO) 3.6 K/uL (1.8-8.9); NEUTROPHILS % (AUTO) 77.3 % (38.5-71.5); PLATELET COUNT (AUTO) 151 K/uL (152-348); RED CELL DISTRIBUTION WIDTH 14.9 % (12.1-16.2); WHITE BLOOD COUNT (AUTO) 4.7 K/uL (3.6-10.2)
[2024-11-15 06:54] LABS: CALCIUM 8.6 mg/dL (8.5-10.1); CARBON DIOXIDE 30 mmol/L (21-32); CHLORIDE 104 mmol/L (98-107); CREATININE 5.6 mg/dL (0.6-1.3); GLUCOSE 86 mg/dL (74-106); POTASSIUM 4.4 mmol/L (3.5-5.1); SODIUM SERUM 143 mmol/L (136-145); UREA NITROGEN, BLOOD 47 mg/dL (7-18)
[2024-11-15 06:55] LABS: DIFFERENTIAL COMMENT 1
[2024-11-15] MEDS ORDERED: HOME MED MISCELLANEOUS XX SCH (09:00)
[2024-11-15] MEDS ORDERED: LOPERAMIDE HCL 2 MG CAPSULE PO PRN (09:00)
[2024-11-15] MEDS ORDERED: DIPHENOXYLATE HCL/ATROP SULF TABLET PO PRN (09:00)
[2024-11-15] MEDS: QUETIAPINE FUMARATE 25 MG TABLET NG SCH (09:51)
[2024-11-15] MEDS: NEPRO 1000 ML GT PRN (14:46)
[2024-11-15] MEDS: FREE WATER VIA TUBE FEEDING GT SCH (14:49)
[2024-11-15] MEDS: MIRTAZAPINE 15 MG TABLET NG SCH (20:44)
[2024-11-16] VITALS (7 sets, daily range): BP systolic 107–161; BP diastolic 26–76; TEMP 96.9–97.8; O2SAT 92–99
[2024-11-16] MEDS: ACETAMINOPHEN 650 MG SUPP.RECT RC PRN (01:25)
[2024-11-17] VITALS (7 sets, daily range): BP systolic 104–157; BP diastolic 49–73; TEMP 96–98.2; O2SAT 92–100
[2024-11-17] MEDS: TEMAZEPAM 15 MG CAPSULE PO PRN (00:09)
[2024-11-17 07:45] LABS: BASOPHILS % (AUTO) 1.1 % (0.0-2.0); EOSINOPHILS # (AUTO) 0.1 K/uL (0.0-0.7); EOSINOPHILS % (AUTO) 4.4 % (0.0-7.0); LYMPHOCYTES # (AUTO) 0.2 K/uL (0.8-4.8); LYMPHOCYTES % (AUTO) 5.4 % (20.5-51.5); MEAN CORPUSCULAR HEMOGLOBIN 31.8 uug (23.8-33.4); MEAN CORPUSCULAR HGB CONC 33 g/dL (32.5-36.3); MONOCYTES # (AUTO) 0.3 K/uL (0.1-1.30); MONOCYTES % (AUTO) 9.4 % (0.0-11.0); NEUTROPHILS # (AUTO) 2.5 K/uL (1.8-8.9); NEUTROPHILS % (AUTO) 79.7 % (38.5-71.5); PLATELET COUNT (AUTO) 90 K/uL (152-348); RED CELL DISTRIBUTION WIDTH 15.1 % (12.1-16.2); WHITE BLOOD COUNT (AUTO) 3.1 K/uL (3.6-10.2)
[2024-11-17 08:06] LABS: CALCIUM 7.8 mg/dL (8.5-10.1); CARBON DIOXIDE 24 mmol/L (21-32); CHLORIDE 105 mmol/L (98-107); CREATININE 6.9 mg/dL (0.6-1.3); GLUCOSE 118 mg/dL (74-106); MAGNESIUM 1.7 mg/dL (1.8-2.4); PHOSPHOROUS 5.2 mg/dL (2.5-4.9); POTASSIUM 4.2 mmol/L (3.5-5.1); SODIUM SERUM 142 mmol/L (136-145); UREA NITROGEN, BLOOD 63 mg/dL (7-18)
[2024-11-17 08:09] LABS: DIFFERENTIAL COMMENT 1; HEMATOCRIT 20.1 % (36.7-47.1); HEMOGLOBIN 6.6 g/dL (12.5-16.3); RED BLOOD CELL COUNT(AUTO) 2.07 MIL/uL (4.06-5.63)
[2024-11-17] MEDS: MAGNESIUM OXIDE 400 MG TABLET GT ONE (08:52)
[2024-11-17 13:07] LABS: ANISOCYTOSIS 2+; BAND % (MANUAL) 4 % (0-10); EOSINOPHILS % (MANUAL) 3 % (0-8); LYMPHOCYTES % (MANUAL) 6 % (20-40); MONOCYTES % (MANUAL) 10 % (2-10); NEUTROPHILS % (MANUAL) 77 % (42-75); PLATELET ESTIMATE DECREASED
[2024-11-18 03:06] VITALS: O2SAT 97
[2024-11-18 04:06] VITALS: BP 141/66; TEMP 97; O2SAT 97
[2024-11-18 11:45] VITALS: BP 152/71; TEMP 96.9; O2SAT 98
[2024-11-18] MEDS: SCOPOLAMINE PATCH 1 MG/72 HRS PATCH TD SCH (15:02)
[2024-11-18 15:55] VITALS: BP 105/64; TEMP 98.7; O2SAT 96
[2024-11-18 16:40] VITALS: O2SAT 98
[2024-11-18 20:00] VITALS: TEMP 96
[2024-11-19 03:17] VITALS: O2SAT 95
[2024-11-19 04:00] VITALS: TEMP 98
[2024-11-19] MEDS: LORAZEPAM 2 MG/1 ML VIAL IV PRN (07:41)
[2024-11-19] MEDS: MORPHINE SULFATE 2 MG/1 ML DISP.SYRIN IV PRN (13:29)
== END 2024-11-19 13:50 | DRG 871 ==
LOC: ER 00:10 → TRANSITION 02:00 → CCUOV 11-12 21:43 → TELE3 11-13 12:05 → MEDSURG3 11-16 00:10 → TELE3 11-16 06:58 → MEDSURG3 11-17 13:00
PROC: 5A1945Z Respiratory Ventilation, 24-96 Consecutive Hours (ICD-10-PCS; principal; 2024-11-11)
PROC: 0BH17EZ Insertion of Endotracheal Airway into Trachea, Via Natural or Artificial Opening (ICD-10-PCS; 2024-11-11)
PROC: 02HV33Z Insertion of Infusion Device into Superior Vena Cava, Percutaneous Approach (ICD-10-PCS; 2024-11-11)
PROC: 30233N1 Transfusion of Nonautologous Red Blood Cells into Peripheral Vein, Percutaneous Approach (ICD-10-PCS; 2024-11-11)
PROC: 5A1D70Z Performance of Urinary Filtration, Intermittent, Less than 6 Hours Per Day (ICD-10-PCS; 2024-11-11)
PROC: 0W993ZZ Drainage of Right Pleural Cavity, Percutaneous Approach (ICD-10-PCS; 2024-11-12)
PROC: 0DH67UZ Insertion of Feeding Device into Stomach, Via Natural or Artificial Opening (ICD-10-PCS; 2024-11-12)
PROC: 05HB33Z Insertion of Infusion Device into Right Basilic Vein, Percutaneous Approach (ICD-10-PCS; 2024-11-14)
DX: A41.9 Sepsis, unspecified organism (principal); E43 Unspecified severe protein-calorie malnutrition; G92.8 Other toxic encephalopathy; J15.69 Pneumonia due to other Gram-negative bacteria; J96.01 Acute respiratory failure with hypoxia; N18.6 End stage renal disease; R65.21 Severe sepsis with septic shock; J69.0 Pneumonitis due to inhalation of food and vomit; J96.02 Acute respiratory failure with hypercapnia; Z51.5 Encounter for palliative care; Z66 Do not resuscitate; K50.90 Crohn's disease, unspecified, without complications; J91.8 Pleural effusion in other conditions classified elsewhere; R64 Cachexia; D61.818 Other pancytopenia; I12.0 Hypertensive chronic kidney disease with stage 5 chronic kidney disease or end stage renal disease; R62.7 Adult failure to thrive; Z68.20 Body mass index [BMI] 20.0-20.9, adult; D63.1 Anemia in chronic kidney disease; K21.9 Gastro-esophageal reflux disease without esophagitis; N40.0 Benign prostatic hyperplasia without lower urinary tract symptoms; R13.10 Dysphagia, unspecified; E88.09 Other disorders of plasma-protein metabolism, not elsewhere classified; E83.42 Hypomagnesemia; F32.A Depression, unspecified; M89.8X9 Other specified disorders of bone, unspecified site; Z99.2 Dependence on renal dialysis; Z86.16 Personal history of COVID-19; E87.70 Fluid overload, unspecified; D53.9 Nutritional anemia, unspecified
CPT/HCPCS: 32555; 36415; 36600; 70030-TC; 70450; 71045; 76604; 82803; 83605; 83615; 83735; 83986; 84100; 84155; 84484; 85025; 85610; 85730; 86850; 86900; 86901; 86920; 87040; 90937; 93307; 94002; 94760; A4606; A4663; A6213; G0378; J0278; J0330; J0692; J0885; J1200; J2060; J2270; J2470; J3475; J3490; J7040; J7042; P9016